=== PATIENT | female | born 1940 | race Caucasian/White ===

== ENCOUNTER 2017-02-28 09:06 | Day surgery (SDC) | payer MEDICARE, BC ==
[~2017-02-28 09:06] MED LIST: ALENDRONATE SOD70 M2 PO; ALEVE220 M3 PO; ASPIRIN325 M3 PO; CALCIUM + VITA1 EAC4 PO; GLUCOPHAGE1000 M1 PO; GLUCOTROL5 M1 PO; LISINOPRIL40 M1 PO; MULTIVITAMINS1 EAC7 PO; NORVASC5 M2 PO; PRAVASTATIN SOD40 M1 PO; VITAMIN B COMP1 EAC1 PO
[2017-02-28 11:08] LABS: BASO % 0.3 % (0-2); EOSINOPHIL ABSOLUTE COUNT 0.2 tho/cmm (0.0-0.7); HGB-HEMOGLOBIN 12.8 gm/dl (12.0-15.5); IMMATURE GRANULOCYTES ABSOLUTE 0.01 tho/cmm (0-0.03); IMMATURE GRANULOCYTES PERCENT 0.1 % (0-0.3); LYMPH % 25.5 % (20-45); LYMPH ABSOLUTE COUNT 1.9 tho/cmm (0.8-4.5); MCH (MEAN CORPUSCULAR HGB) 28.8 pg (28.0-32.0); MCHC MEAN CORPUSCULAR HGB CONC 33.7 % (32.0-36.0); MCV (MEAN CELL VOLUME) 85.6 fl (82.0-96.0); MEAN PLATELET VOLUME 10.2 cmc (9.4-12.4); MONOCYTE ABSOLUTE COUNT 0.6 tho/cmm (0.0-1.2); NEUTROPHIL ABSOLUTE COUNT 4.6 tho/cmm (1.6-8.0); NEUTROPHIL-AUTOMATED 4.6 tho/cmm (1.6-8.0); NEUTROPHILS % 63.1 % (40-80); PLATELET COUNT 161 tho/cmm (150-450); RED BLOOD COUNT 4.44 mil/cmm (4.00-5.20); RED CELL DISTRIBUTION WIDTH 12.3 % (12.4-16.4); WHITE BLOOD COUNT 7.3 tho/cmm (4.0-10.0)
[2017-02-28 11:18] LABS: ANION GAP 14 mmol/L (0-20); BLOOD UREA NITROGEN 16 mg/dl (6-24); CALCIUM 9.5 mg/dl (8.5-10.5); CARBON DIOXIDE-VENOUS 24 mmol/L (22-32); CHLORIDE 108 mmol/l (96-110); CREATININE 0.72 mg/dl (0.50-1.10); GLUCOSE 98 mg/dL (70-110); POTASSIUM 4.4 mmol/L (3.7-5.1); SODIUM 142 mmol/L (135-145); eGFR VALUE FOR BLACK >90 mL/Min
[2017-03-01] MEDS ORDERED: LORCET 5-325 M1 EAC1 PO (07:07)
[2017-05-26] MEDS ORDERED: NEURONTIN100 M1 PO (16:48)
[2017-05-26] MEDS ORDERED: OMEPRAZOLE20 M3 PO (16:51)
[2017-05-26] MEDS ORDERED: NOVOLOG100 UNITS/ SC (16:52)
[2017-06-14] MEDS ORDERED: HYDROCODON-ACE1 EA16 PO (09:20)
[2017-06-14] MEDS ORDERED: DOXYCYCLINE HY100 M3 PO (09:21)
== END 2017-03-01 10:50 ==
LOC: SRG 09:06 → SHSB 09:07 → ORW 11:29 → SHSB 12:05 → BURN 12:44
PROVIDERS: Anesthesiology
PROC: 0Y6R0Z3 Detachment at Right 2nd Toe, Low, Open Approach (ICD-10-PCS; principal; 2017-02-28)
DX: E11.621 Type 2 diabetes mellitus with foot ulcer (principal); L97.519 Non-pressure chronic ulcer of other part of right foot with unspecified severity; M86.171 Other acute osteomyelitis, right ankle and foot; Z90.49 Acquired absence of other specified parts of digestive tract; Z96.651 Presence of right artificial knee joint; Z79.899 Other long term (current) drug therapy; Z88.2 Allergy status to sulfonamides
CPT/HCPCS: G8978-GP-CI; G8979-GP-CI; G8980-GP-CI; J0171; J2250; J3010; J3370